=== PATIENT | female | born 1985 | race Caucasian/White ===

== ENCOUNTER 2024-02-05 21:40 | Emergency (ER) | payer OTHER ==
[~2024-02-05] VITALS: Ht 162.6 cm; Wt 65.0 kg
[2024-02-05 21:42] VITALS: BP 147/96; PULSE 96; RESP 16; TEMP 97.5; O2SAT 100
== END 2024-02-05 22:09 ==
LOC: ER 21:42
DX: Z00.00 Encounter for general adult medical examination without abnormal findings (principal); Z88.0 Allergy status to penicillin
CPT/HCPCS: 99283